=== PATIENT | female | born 1950 | race Caucasian/White ===

== ENCOUNTER → 2016-09-22 | Outpatient (CLI) | payer BC ==
[2016-09-22 11:15] LABS: ALKALINE PHOSPHATASE 78 U/L (45-117); ALT/SGPT 35 U/L (12-78); AST/SGOT 12 U/L (15-37); CHOLESTEROL 151 mg/dl (0-200); CHOLESTEROL/HDL RATIO 3.2; HDL CHOLESTEROL 47 mg/dl; LDL CHOLESTEROL CALCULATED 75 mg/dl; TRIGLYCERIDES 147 mg/dl (0-150); VERY LOW DENSITY LIPOPROT CALC 29 mg/dl
== END | disposition home or self-care (01) ==
LOC: C.LABBC 08:05
PROVIDERS: ATTEND Family Medicine
DX: Z11.59 Encounter for screening for other viral diseases (principal); E78.2 Mixed hyperlipidemia

== ENCOUNTER → 2016-09-28 | Outpatient (CLI) | payer BC ==
--- NOTE | 2016-09-28 13:16 | MAMMOGRAPHY REPORT ---
BILATERAL DIGITAL SCREENING MAMMOGRAM WITH CAD: 09/28/2016 CLINICAL HISTORY: Routine screening. Patient has no complaints. TECHNIQUE: Current study was also evaluated with a Computer Aided Detection (CAD) system. Bilatera l CC and MLO views, left XCCM, and right X CCL views were obtained. COMPARISON: Comparison is made to exams dated: 09/28/2015 mammogram, 09/16/2013 mammogram, 09/25/2014 ma mmogram, 08/08/2012 mammogram, 08/07/2011 mammogram, and 08/05/2010 mammogram - [facility] enter. BREAST COMPOSITION: There are scattered areas of fibroglandular density in both breasts. FINDINGS: No suspicious masses, calcifications, or areas of architectural distortion are noted in e ither breast. There has been no significant interval change compared to prior exams. A few scattere d bilateral benign-appearing calcifications are not significantly changed. IMPRESSION: ACR BI-RADS CATEGORY 2: BENIGN There is no mammographic evidence of malignancy. A 1 year screening mammogram is recommended. The p atient will receive written notification of the results. Approximately 10% of breast cancers are not detected with mammography. A negative mammographic repor t should not delay biopsy if a clinically suggestive mass is present. Alicia Mario M.D. ah/:09/28/2016 12:19:09 Customer Service Cashier: Noreen MATHEWS(Carmen)(M), [facility] letter sent: Normal 1/2 BI-RADS Code: ACR BI-RADS Category 2: Benign
== END | disposition home or self-care (01) ==
LOC: C.MAMM 10:46
PROVIDERS: ATTEND Family Medicine
DX: Z12.31 Encounter for screening mammogram for malignant neoplasm of breast (principal)

== ENCOUNTER → 2017-10-01 | Outpatient (CLI) | payer BC ==
--- NOTE | 2017-10-01 15:17 | MAMMOGRAPHY REPORT ---
BILATERAL DIGITAL SCREENING MAMMOGRAM TOMOSYNTHESIS WITH CAD: 10/01/2017 CLINICAL HISTORY: Routine screening. Patient has no complaints. TECHNIQUE: Bilateral breast tomosynthesis in addition to standard 2D mammography was performed. Curre nt study was also evaluated with a Computer Aided Detection (CAD) system. COMPARISON: Comparison is made to exams dated: 09/28/2016 mammogram, 09/28/2015 mammogram, 09/25/2014 mamm ogram, 09/16/2013 mammogram, 08/08/2012 mammogram, and 08/07/2011 mammogram - [facility]. BREAST COMPOSITION: There are scattered areas of fibroglandular density in both breasts. FINDINGS: There is a possible faint grouping of microcalcifications in the lower inner middle one th ird of the left breast, for which additional spot magnification views are recommended. No other suspicious mass, architectural distortion or cluster of microcalcifications is seen bilatera lly. IMPRESSION: ACR BI-RADS CATEGORY 0: INCOMPLETE EVALUATION: NEED ADDITIONAL IMAGING EVALUATION The possible faint grouping of microcalcifications in the lower inner left breast need additional gladis luation. The patient will be called to schedule an appointment. Approximately 10% of breast cancers are not detected with mammography. A negative mammographic report should not delay biopsy if a clinically suggestive mass is present. Maribeth Hernandez M.D. ay/:10/01/2017 12:42:38 Supervisor Pole Yard: Noreen PENALOZA)(Shanita), [facility] letter sent: Addl Imaging 0 BI-RADS Code: ACR BI-RADS Category 0: Incomplete Evaluation: Need Additional Imaging Evaluation
== END | disposition home or self-care (01) ==
LOC: C.MAMM 11:00
PROVIDERS: ATTEND Physician Assistant Medical
DX: Z12.31 Encounter for screening mammogram for malignant neoplasm of breast (principal); R92.0 Mammographic microcalcification found on diagnostic imaging of breast

== ENCOUNTER → 2017-10-08 | Outpatient (CLI) | payer BC ==
--- NOTE | 2017-10-08 13:56 | MAMMOGRAPHY REPORT ---
UNILATERAL LEFT DIGITAL DIAGNOSTIC MAMMOGRAM: 10/08/2017 CLINICAL HISTORY: Callback from screening mammogram for left breast calcifications. TECHNIQUE: Spot magnification left CC and ML views were obtained. COMPARISON: Comparison is made to exams dated: 10/01/2017 mammogram, 09/28/2015 mammogram, 09/28/2016 elise mogram, 09/25/2014 mammogram, 09/16/2013 mammogram, and 08/08/2012 mammogram - [facility]. BREAST COMPOSITION: There are scattered areas of fibroglandular density in the left breast. FINDINGS: Spot magnification views demonstrate a small faint 5 mm cluster of calcifications within th e left lower inner quadrant. Some of the calcifications are punctate although the calcifications dif gurpreet slightly in shape and size. The calcifications are not clearly present on prior exams. Therefor e, the calcifications are indeterminate and stereotactic biopsy is recommended for further evaluation . IMPRESSION: ACR BI-RADS CATEGORY 4: SUSPICIOUS New small 5 mm cluster of calcifications within the left lower inner quadrant. The calcifications ar e indeterminate and stereotactic biopsy is recommended for further evaluation. A phone call was made to the physician's office to confirm faxed results were received. The patient has been verbally notified of the results. She tentatively schedule the biopsy [facility]. Approximately 10% of breast cancers are not detected with mammography. A negative mammographic report should not delay biopsy if a clinically suggestive mass is present. Alicia Mario M.D. /:10/08/2017 10:27:48 Undercar Specialist: Dacia PENALOZA)(Shanita), [facility] letter sent: Abnormal 4/5 BI-RADS Code: ACR BI-RADS Category 4: Suspicious
== END | disposition home or self-care (01) ==
LOC: C.MAMM 10:00
PROVIDERS: ATTEND Physician Assistant Medical
DX: R92.1 Mammographic calcification found on diagnostic imaging of breast (principal)

== ENCOUNTER → 2017-10-15 | Outpatient (CLI) | payer BC ==
--- NOTE | 2017-10-15 13:24 | Discharge Instructions ---
Discharge Instructions Procedure Procedure Date: Oct 15, 2017. Reason for visit: Left Calcifications. Discharge Discharge Date: Oct 15, 2017. Discharge Diagnosis: post left breast stereotactic guided biopsy Instructions Activity Recommendations: Additional Limitations (see below) Return to School/Work: no limitations Recommended Home Diet: No Limitations Provider Instructions: ACTIVITY RECOMMENDATIONS: * No lifting, pushing, pulling or exercising the affected side for three days. RETURN TO SCHOOL/WORK: * You may return to work/school after the procedure, but do not perform any strenuous activities for 24 to 48 hours. MEDICATIONS: * Tylenol (two 325 mg) every four to six hours if needed for mild pain (if not allergic to Tylenol). DIET: * Resume previous diet. SPECIAL CARE INSTRUCTIONS: * Keep biopsy site dry for 24 hours. May shower after 24 hours, but do not soak (bathe) incision. * May remove Tegaderm (plastic patch) tomorrow AFTER showering. * Leave the steri-strips on for one week. Allow the steri-strips to fall off by themselves. If not off after one week, you may remove them. You may place a Bandaid crosswise over the strips, if desired. * Apply ice 10 minutes on and 10 minutes off as needed. * Wear a bra at bedtime to sleep more comfortably for 2-3 days. * Your referring physician should have the results after approximately 5 to 7 business days. * Call for unusual bleeding, fever, drainage, etc or if you have any questions call [phone] during normal business hours or after hours call Dr Hernandez, . FOLLOW UP VISIT: Follow-up with Referring Physician as scheduled. Allergies Coded Allergies: Cefaclor (Verified Allergy, Unknown, 08/27/09) Codeine (Verified Allergy, Unknown, 08/27/09) Penicillins (Verified Allergy, Unknown, 08/27/09) Reddy Spence Recommendations: Call your doctor if: * Temperature above 101 degrees * Pain not relieved by pain medicine ordered * There is increased drainage or redness from any incision * You have any unanswered questions or concerns. Your Doctors Instructions noted above were prepared by provider Maribeth Hernandez. Patient Signature Section: Patient Instructions Signature Page Kia Mayorga Patient (or Guardian) Signature/Date: I have read and understand the instructions given to me by my caregivers. Caregiver/RN/Doctor Signature/Date: The above-named patient and/or guardian has received patient instructions on this date. + Original Patient Signature Page (only) stays with chart. Please make copy for patient.
--- NOTE | 2017-10-16 13:03 | MAMMOGRAPHY REPORT ---
UNILATERAL LEFT DIGITAL DIAGNOSTIC MAMMOGRAM: 10/15/2017 CLINICAL HISTORY: Status post left breast stereotactic biopsy of a 5 mm cluster of amorphous microcal cifications in the lower inner anterior left breast. Please refer to the report from left breast stereotactic guided biopsy performed at the same time for full detail. IMPRESSION: POST PROCEDURE IMAGING FOR MARKER PLACEMENT Please refer to the report from left breast stereotactic guided biopsy performed at the same time for full detail. Approximately 10% of breast cancers are not detected with mammography. A negative mammographic report should not delay biopsy if a clinically suggestive mass is present. Maribeth Hernandez M.D. ay/:10/15/2017 13:41:50 Transportation Program Director: Capri PENALOZA)(Shanita), [facility] BI-RADS Code: Post Procedure Imaging For Marker Placement
--- NOTE | 2017-10-16 13:03 | MAMMOGRAPHY REPORT ---
STEREOTACTIC GUIDED BIOPSY LEFT BREAST: 10/15/2017 CLINICAL HISTORY: 5 mm cluster of amorphous microcalcifications in the left lower inner quadrant. Russell nicole presents for stereotactic guided biopsy. COMPARISON: Comparison is made to exams dated: 10/08/2017 mammogram, 10/01/2017 mammogram, 09/28/2016 ma mmogram, 09/28/2015 mammogram, 09/25/2014 mammogram, and 09/16/2013 mammogram - [facility]. PATIENT CONSENT: After explaining the risks, benefits and alternatives of the procedure to the patien t, informed consent was obtained both verbally and in writing. Specific risks include: Bleeding, inf ection, puncture of adjacent structure, pain, nontarget biopsy, sampling error, metal allergy and med ication reaction. PROCEDURE DESCRIPTION: A time-out was performed and the left breast was confirmed as the site of biop sy. The patient was placed prone on the stereotactic biopsy table and the breast was placed in medial lateral compression. A bid analyst image was obtained that demonstrated the clustered microcalcifications in question. They are amenable to sterotactic biopsy. Then +15 and -15 stereo pair images were obt ained. The calcifications were targeted utilizing the coordinates obtained by the computer. The skin was prepped with Betadine. 1% Lidocaine with and without epinipherine was administered as local anes thesia. A small skin incision was made. Through the incision, the needle was inserted to the depth d etermined by the computer. 12 samples were obtained using a retickriva 9-gauge vacuum-assisted biops y device. The specimen radiograph demonstrated several technical service representative microcalcifications, therefore, a metallic marker was placed at the biopsy site. There was no immediate complication. Hemostasis was achieved after several minutes of manual compression. The samples were sent to pathology in an appr opriately labeled container. Postprocedure CC and ML views of the left breast were obtained. There is a new dumbbell-shaped biop sy marker clip and no significant hematoma in the lower inner middle to anterior left breast, at the site of the biopsied 5 mm cluster of calcifications. IMPRESSION: STEREOTACTIC GUIDED BIOPSY Status post left breast stereotactic guided biopsy of a 5 mm cluster of amorphous microcalcifications in the left lower inner quadrant, with biopsy marker placed at the site. The patient will receive notification of the biopsy results from her referring physician. Maribeth Hernandez M.D. ay/:10/15/2017 13:43:45 Fire Equipment Inspector: Capri PENALOZA)Veena), [facility]
== END | disposition home or self-care (01) ==
LOC: C.MAMM 12:31
PROVIDERS: ATTEND Physician Assistant Medical
DX: R92.0 Mammographic microcalcification found on diagnostic imaging of breast (principal); D05.12 Intraductal carcinoma in situ of left breast

== ENCOUNTER → 2017-11-19 | Day surgery (SDC) | payer BC ==
[2017-11-13 08:34] VITALS: BMI 31.0
--- NOTE | 2017-11-13 09:08 | PAT Medication Instructions ---
Service Date Nov 13, 2017. Current Home Medication List Atorvastatin (Lipitor), 10 MG PO QAM Loratadine (Claritin), 10 MG PO DAILY PRN for PRN Multivitamin (Multivitamin), 1 TAB PO QAM Medication Instructions For Your Scheduled Surgery - Hold the following medications the morning of surgery: Loratadine (Claritin), 10 MG PO DAILY PRN for PRN Multivitamin (Multivitamin), 1 TAB PO QAM - Take the following medications the morning of surgery with a sip of water: Atorvastatin (Lipitor), 10 MG PO QAM - Take the following medications as scheduled the night before surgery: Loratadine (Claritin), 10 MG PO DAILY PRN for PRN (if needed) If you have any questions please call us at [phone] or [phone] or [phone]
[2017-11-13 10:12] LABS: BASO % 0.2 %; BASO ABS # 0.01 K/uL (0-0.2); EOS % 2.7 %; EOS ABS # 0.13 K/uL (0-0.5); HEMATOCRIT 42.5 % (37-47); HEMOGLOBIN 14.1 g/dL (12.0-16.0); IG# 0.01 K/uL (0.00-0.02); LYMPH % 30.6 %; LYMPH ABS # 1.49 K/uL (1.2-3.4); MEAN CORPUSCULAR HEMOGLOBIN 30.2 pg (25-34); MEAN CORPUSCULAR HGB CONC 33.2 g/dl (32-36); MEAN PLATELET VOLUME 10.9 fL (7.4-10.4); MONO % 11.7 %; MONO ABS # 0.57 K/uL (0.11-0.59); NEUT % 54.6 %; NEUT ABS # 2.66 K/uL (1.4-6.5); PLATELET COUNT 209 K/uL (130-400); RED CELL DISTRIBUTION WIDTH CV 14.1 % (11.5-14.5); RED CELL DISTRIBUTION WIDTH SD 46.2 fL (36.4-46.3); WHITE BLOOD COUNT 4.87 K/uL (4.8-10.8)
[2017-11-13 10:20] LABS: CALCIUM 8.9 mg/dl (8.5-10.1); CREATININE 0.81 mg/dl (0.60-1.20); POTASSIUM 4.1 mmol/L (3.5-5.1)
[~2017-11-19] VITALS: Ht 152.4 cm; Wt 72.2 kg
[~2017-11-19] MED LIST: ATOR10TA82 PO; ATROPINE SULFATE 0.1 MG/ML 5ML SYR IV PRN; BUPIVACAINE 0.5 % 5 MG/1 ML MPF 30ML VIAL ONE; CLINDAMYCIN IV 900 MG in DEXTROSE 5% 50ML IV SCH; CLR10 PO; DEXAMETHASONE SOD INJ 4 MG/ML VIAL ONE; EpHEDrine SULFATE INJ 50 MG/ML AMP IV PRN; FENTANYL CITRATE INJ 50 MCG/1 ML 2 ML VIAL IV PRN; FENTANYL CITRATE INJ 50 MCG/1 ML 2 ML VIAL ONE; HYDR-5688 PO; HYDROCODONE/ACETAMIN 5/325MG TAB PO PRN; ISOSULFAN BLUE 10 MG/ML VIAL 5 ML ONE; LACTATED RINGER'S 1000ML 1,000 ML IV SCH; LIDOCAINE HCL 2% 2 ML VIAL (20MG/ML) ONE; MIDAZOLAM HCL 1 MG/ML 2ML VIAL ONE; MULT-506 PO; ONDANSETRON INJ 2 MG/ML 2 ML VIAL IV PRN; ONDANSETRON INJ 2 MG/ML 2 ML VIAL ONE; PROPOFOL IV EMULSION 10 MG/ML 20 ML VIAL ONE
[2017-11-19 09:43] VITALS: BP 179/81; PULSE 60; TEMP 36.7; O2SAT 97; Ht 152.4 cm; Wt 72.2 kg
--- NOTE | 2017-11-19 09:44 | DIAGNOSTIC IMAGING REPORT ---
LEFT BREAST LYMPHOSCINTIGRAPHY CLINICAL HISTORY: Left breast cancer. COMPARISON STUDY: Diagnostic left mammogram October 15, 2017. PROCEDURE: The procedure, risks and benefits were discussed with the patient and informed consent was obtained. The procedure was performed by Dr. Kimble following a timeout. Skin of the left periareolar region was prepped in sterile fashion. A total of 0.506 mCi of Lymphoseek was injected in 5 intradermal aliquots within a left periareolar distribution at 9:20 AM on November 19, 2017. No imaging was requested at this time. The patient tolerated the procedure well and no immediate complications were evident. IMPRESSION: Left breast lymphoscintigraphy, as described above. Electronically signed by: Howard Kimble M.D. 11/19/2017 9:43 AM Dictated Date/Time: 11/19/2017 9:41 AM
--- NOTE | 2017-11-19 10:17 | History & Physical Bridge Note ---
H&P Re-Evaluation Bridge Note: I have examined the patient, reviewed the History & Physical and in the interval since the performance of the History & Physical I have noted the following changes of clinical significance: No changes noted
[2017-11-19 12:00] VITALS: BP 157/73; PULSE 59; TEMP 36.5; O2SAT 97
--- NOTE | 2017-11-19 12:07 | [facility] Operative Report ---
Operative Report Operative Date Nov 19, 2017. Pre-Operative Diagnosis Ductal carcinoma In Situ Lt breast Post-Operative Diagnosis Same as Preop Procedure(s) Performed Left Breast Lumpectomy with Needle Localization and Left [place] Lymph Node Biopsy Surgeon Dr. Gill Fire Control Officer Surgeon(s) Victoriano Viera PA-C Estimated Blood Loss 10 ml Findings clip w/n specimen SLN frozen negative Specimens Frozen 1. Left [place] Lymph Node left room at 1141 Permanent A. Left breast tissue skin anterior, short silk medial, long silk lateral B. Additional left breast tissue short silk medial, long silk lateral, methalyne blue new margin Anesthesia Type General Complication(s) none Disposition Recovery Room / PACU I attest to the content of the Intraoperative Record and any orders documented therein. Any exceptions are noted below.
--- NOTE | 2017-11-19 12:14 | Discharge Instructions ---
Discharge Instructions Date of Service Nov 19, 2017. Visit Reason for Visit: Left Breast Dcis W/Hosp Loc & Nm Lymph Inj Discharge Discharge Diagnosis / Problem: DCIS Lt breast Discharge Goals Goal(s): Decrease discomfort, Improve function, Improve disease control Activity Recommendations Activity Limitations: as noted below Lifting Limitations: no more than 25 pounds (for 2 weeks) Exercise/Sports Limitations: until after follow-up appointment May Resume Sexual Activity: when tolerated Shower/Bathe: keep incision dry (may shower over incision in 2 days- 11/21) Driving or Machine Use: resume 3 days after discharge Anesthesia . Post Anesthesia Instructions: If you have had General Anesthesia or IV Sedation: * Do not drive today. * Resume driving when surgeon permits. * Do not make important decisions or sign legal documents today. * Call surgeon for: 1. Temperature elevations greater than 101 degrees F. 2. Uncontrollable pain. 3. Excessive bleeding. 4. Persistent nausea and vomiting. 5. Medication intolerance (nausea, vomiting or rash). * For nausea and vomiting use only clear liquids such as: tea, soda, bouillon until nausea subsides, then gradually increase diet as tolerated. * If you have any concerns or questions, call your surgeon's office. If physician is unavailable and it is an emergency, call 911 or go to the nearest emergency room. . Instructions / Follow-Up Instructions / Follow-Up SPECIAL CARE INSTRUCTIONS: * Cover incisions and change daily for comfort/drainage. * Leave steri strips in place * May use ibuprofen for pain as tolerated. * Expect some swelling and bruising. Call your doctor if: * Temperature above 101 degrees * Pain not relieved by pain medicine ordered * There is increased drainage or redness from any incision * You have any unanswered questions or concerns [phone]. FOLLOW UP VISIT: If not already scheduled, please call the office for a follow-up visit. for scheduled appointment- some suture removal OFFICE PHONE NUMBER: Dr. Gill Office Diet Recommendations Recommended Home Diet: resume previous diet Procedures Procedures Performed: Left Breast Lumpectomy with Needle Localization and Left [place] Lymph Node Biopsy Pending Studies Studies pending at discharge: no Medical Emergencies . Who to Call and When: Medical Emergencies: If at any time you feel your situation is an emergency, please call 911 immediately. . Non-Emergent Contact Non-Emergency issues call your: Primary Care Provider, Surgeon . . "Provider Documentation" section prepared by Osei Gill. .
[2017-11-19 12:30] VITALS: BP 147/78; PULSE 63; TEMP 36.5; O2SAT 97
[2017-11-19 12:55] VITALS: BP 147/73; PULSE 53; TEMP 36.2; O2SAT 98
--- NOTE | 2017-11-19 13:06 | Anesthesiology Progress Note ---
Anesthesia Post Op Note Date & Time Nov 19, 2017 at 13:06 Vital Signs Pain Intensity: 0 Vital Signs Past 12 Hours Date Time Temp Pulse Resp B/P (MAP) Pulse Ox O2 Delivery O2 Flow Rate FiO2 11/19/17 12:55 36.2 53 16 147/73 98 Room Air 11/19/17 12:45 62 16 141/77 98 Room Air 11/19/17 12:35 55 14 156/76 100 Oxymask 3 11/19/17 12:25 59 16 152/73 100 Oxymask 5 11/19/17 12:18 36.0 65 16 159/75 99 Oxymask 5 11/19/17 09:43 36.7 60 18 179/81 (113) 97 Room Air Notes Mental Status: alert / awake / arousable, participated in evaluation Pt Amnestic to Procedure: Yes Nausea / Vomiting: adequately controlled Pain: adequately controlled Airway Patency, RR, SpO2: stable & adequate BP & HR: stable & adequate Hydration State: stable & adequate Anesthetic Complications: no major complications apparent
--- NOTE | 2017-11-19 13:21 | OPERATIVE REPORT ---
DATE OF OPERATION: 11/19/2017 NAME OF OPERATION: Needle localization, left breast lumpectomy with sentinel lymph node biopsy. PREOPERATIVE DIAGNOSIS: Ductal carcinoma in situ, left breast. POSTOPERATIVE DIAGNOSIS: Ductal carcinoma in situ, left breast. STAFF SURGEON: Osei Gill MD SACK REPAIRER: Edin Viera PA-C ANESTHESIA: General. PROCEDURE IN DETAIL: The patient was brought in the operating room and placed on the operating table in supine position. Her left chest was prepped and draped in usual fashion. She had undergone needle localization of the left breast and also injection in nuclear medicine. Initially, an incision was made in the left axilla using 0.5% plain Marcaine to anesthetize the skin and subcutaneous tissue, carrying dissection very deep 5-6 cm down into the axilla, identifying the sentinel node, sending it for frozen section. The frozen section was negative. During the frozen section, lumpectomy was performed. 0.5% plain Marcaine was used to anesthetize the skin and subcutaneous tissue. An elliptical incision was made around the needle which had been placed medially. Dissection was carried down around the needle and then the tissue marked with the skin anterior, short silk suture medial, long silk suture lateral. It was placed into the Faxitron, the clip was within the center of the tissue. I took additional tissue inferiorly and medially as well as some superiorly around the area of the tip of the needle. It was marked with a short silk medial, long silk lateral, and methylene blue as the new margin. At this point, both incisions were closed by reapproximating the deep tissue using 2-0 plain catgut suture, then the skin on the axilla using 4-0 nylon suture, skin on the breast using subcuticular 4-0 Monocryl and Steri-Strips. Dressings were applied and the patient transferred to recovery room in stable condition. My multimedia assistant helped with prepping, draping, dissection of both areas of dissection, and also closure of the wounds. I attest to the content of the Intraoperative Record and any orders documented therein. Any exception s are noted below.
--- NOTE | 2017-11-19 14:12 | MAMMOGRAPHY REPORT ---
SPECIMEN LEFT BREAST: 11/19/2017 CLINICAL HISTORY: 67-year-old woman with recent biopsy-proven DCIS in the left breast. She presents for preoperative needle wire localization prior to surgical excision. Please refer to the report from left breast mammogram guided needle localization performed at the [facility] for full detail. IMPRESSION: SPECIMEN Please refer to the report from left breast mammogram guided needle localization performed at the [facility] for full detail. Maribeth Hernandez M.D. ay/:11/19/2017 08:51:30 Hospital Personnel Director: Noreen Paniagua, [facility]
--- NOTE | 2017-11-19 14:12 | MAMMOGRAPHY REPORT ---
NEEDLE LOCALIZATION LEFT BREAST: 11/19/2017 CLINICAL HISTORY: 67-year-old woman with recent biopsy-proven DCIS in the lower inner left breast. S he presents for preoperative needle and wire localization prior to lumpectomy. COMPARISON: Comparison is made to exams dated: 10/15/2017 stereotactic biopsy, 10/15/2017 mammogram, mammogram, 10/01/2017 mammogram, 09/28/2016 mammogram, and 09/28/2015 mammogram - [facility]. PATIENT CONSENT: The risks of the procedure were explained to the patient and informed consent was ob tained. The patient denied eating or drinking anything this morning that would preclude anesthesia. She also denied allergy to lidocaine. PROCEDURE DESCRIPTION: Prior left breast stereotactic guided biopsy images and post procedure mammogr ams dated 10/15/2017 were reviewed. The biopsy marker clip in the lower inner left breast is the inte nded target for localization. With the patient in the seated position, the left breast was placed i n mediallateral compression. 1% buffered Lidocaine without epinephrine was administered as local ane sthesia. A 3cm Handley II needle and wire combination was inserted into the breast. Optimal positioni ng was confirmed and the wire was locked in place, leaving both the needle and wire within the breast , as per surgeon's preference. The entire procedure including approach and needle length were discus sed with the operating surgeon prior to surgery. The patient tolerated the procedure well and there was no immediate complication. She was transferred to the hospital operating room in satisfactory co ndition. The specimen radiograph demonstrates the localizing needle and wire combination, and metallic biopsy marker clip as well as a few possible faint microcalcifications. These findings are compatible with successful preoperative localization and subsequent surgical excision. IMPRESSION: NEEDLE LOCALIZATION Status post preoperative needle and wire localization for biopsy-proven DCIS in the lower inner left breast. The imaged specimen includes the intended abnormalities. The patient will receive notification of the surgical pathology results from her referring physician. Maribeth Hernandez M.D. ay/:11/19/2017 12:14:25 Rotor Casting Machine Operator: Noreen Paniagua, [facility]
== END | disposition home or self-care (01) ==
LOC: C.ACU 07:47
PROVIDERS: ATTEND Surgery
DX: D05.12 Intraductal carcinoma in situ of left breast (principal); I10 Essential (primary) hypertension; E66.9 Obesity, unspecified; Z68.31 Body mass index [BMI] 31.0-31.9, adult; Z88.0 Allergy status to penicillin; Z87.891 Personal history of nicotine dependence; Z79.899 Other long term (current) drug therapy; Z98.890 Other specified postprocedural states; Z90.89 Acquired absence of other organs; Z82.49 Family history of ischemic heart disease and other diseases of the circulatory system; Z80.1 Family history of malignant neoplasm of trachea, bronchus and lung; Z83.49 Family history of other endocrine, nutritional and metabolic diseases